=== PATIENT | male | born 1980 | race Caucasian/White ===

== ENCOUNTER 2017-07-29 19:00 | Emergency (ER) | payer OTHER ==
[2017-07-29] MEDS ORDERED: ALBUTEROL SO4 2.5/IPRATROPIUM 0.5 INH SOL 3 ML VIAL.NEB. NEB ONE ×2 (19:16→20:56)
--- NOTE | 2017-07-29 19:17 | PDOC ---
Rapid Medical Evaluation Time Seen by Provider: 07/29/17 19:14 Medical Evaluation: Allergies Allergy/AdvReac Type Severity Reaction Status Date / Time No Known Allergies Allergy Verified 03/10/16 23:04 I have performed a brief in-person evaluation of this patient. The patient presents with a chief complaint of: chest tightness. hx of asthma. ran out of medication. has asthma symptoms x 3 days Pertinent physical exam findings: wheezing right posterior rob. I have ordered the following: karine The patient will proceed to the ED for further evaluation.
[2017-07-29 19:18] VITALS: BP 151/68; PULSE 84; TEMP 98.2; BMI 33.6
--- NOTE | 2017-07-29 21:17 | PDOC ---
History of Present Illness - General Chief Complaint: Asthma Stated Complaint: ASTHMA Time Seen by Provider: 07/29/17 19:14 History Source: Patient Exam Limitations: No Limitations - History of Present Illness Initial Comments: 07/29/17 21:13 37-year-old male with history of asthma presents to the ED with complaints of cough nasal congestion and intermittent wheezing for the past 2 days. Patient states was unable to see his doctor for a refill of his albuterol and so came to the ER requesting a refill. Patient denies fever, chills, difficulty breathing but states wheezing is worsened at night. Patient has no other complaints at this time. Timing/Duration: reports: changing over time, intermittent (3 days) Possible Cause: Yes: occasional episodes Modifying Factors: improves with: albuterol inhaler Associated Symptoms: reports: nasal congestion, wheezing Past History - Past Medical History Allergies/Adverse Reactions: Allergies Allergy/AdvReac Type Severity Reaction Status Date / Time morphine Allergy Intermediate Verified 07/29/17 19:18 Home Medications: Ambulatory Orders NK [No Known Home Medication] 07/29/17 Asthma: Yes - Immunization History Immunization Up to Date: Yes - Suicide/Smoking/Psychosocial Hx Smoking History: Never smoked Have you smoked in the past 12 months: No Information on smoking cessation initiated: No Hx Alcohol Use: No Drug/Substance Use Hx: No Patient Lives Alone: No Lives with/in: spouse/SO Review of Systems - Review of Systems Able to Perform ROS?: Yes Constitutional: No: Symptoms Reported HEENTM: Yes: Nose Congestion Respiratory: Yes: Cough, Wheezing ABD/GI: No: Symptoms Reported Integumentary: No: Symptoms Reported Neurological: No: Symptoms reported *Physical Exam - Vital Signs Last Vital Signs Temp Pulse Resp BP Pulse Ox 98.2 F 84 16 151/68 98 07/29/17 19:16 07/29/17 19:16 07/29/17 19:16 07/29/17 19:16 07/29/17 19:16 - Physical Exam General Appearance: Yes: Nourished, Appropriately Dressed. No: Apparent Distress HEENT: positive: Nasal Congestion (mild bilateral) Respiratory/Chest: positive: Wheezing (mild expiratory right base). negative: Respiratory Distress, Accessory Muscle Use Cardiovascular: positive: Regular Rhythm, Regular Rate. negative: Murmur Integumentary: positive: Normal Color, Warm, Moist Neurologic: positive: Motor Strength 5/5 (ambulatory) ED Treatment Course - Medications Given in the ED: ED Medications Discontinued Medications Generic Name Dose Route Start Last Admin Trade Name Akbar PRN Reason Stop Dose Admin Albuterol/Ipratropium 1 amp 07/29/17 19:16 07/29/17 20:59 Duoneb - NEB 07/29/17 19:17 1 amp ONCE ONE Administration Medical Decision Making - Medical Decision Making 07/29/17 21:05 Patient requesting a refill for his albuterol inhaler. Patient on exam had mild expiratory wheeze to the rt posterior base. Patient ordered for albuterol in rapid medical evaluation. Patient to be discharged home with albuterol inhaler. 07/29/17 21:16 lungs clear bilateral *DC/Admit/Observation/Transfer Diagnosis at time of Disposition: Asthma exacerbation Qualifiers: Asthma severity: mild Asthma persistence: intermittent Qualified Code(s): J45.21 - Mild intermittent asthma with (acute) exacerbation - Discharge Dispostion Disposition: HOME Condition at time of disposition: Improved - Referrals Referrals: ON STAFF,NOT [Primary Care Provider] - - Patient Instructions Printed Discharge Instructions: DI for Asthma -- Adult Additional Instructions: Carry your inhaler with you at all times. If symptoms worsen please return to ED. otherwise follow up with her primary care physician. - Post Discharge Activity
== END 2017-07-29 21:27 | disposition home or self-care (01) ==
LOC: JERFT 19:00
PROC: 3E0F7GC Introduction of Other Therapeutic Substance into Respiratory Tract, Via Natural or Artificial Opening (ICD-10-PCS; principal; 2017-07-29)
DX: J45.21 Mild intermittent asthma with (acute) exacerbation (principal)
CPT/HCPCS: 99281-25